=== PATIENT | male | born 1985 | race Caucasian/White ===

== ENCOUNTER 2022-05-16 09:39 | Emergency (ER) | payer BC ==
[2022-05-16] MEDS ORDERED: HYDROcodone/Acetaminophen 5/325 mg Tablet ONE (11:57)
[2022-05-16] MEDS ORDERED: Ondansetron ODT 4 MG TAB ONE (13:16)
== END 2022-05-16 13:31 | disposition home or self-care (01) ==
LOC: NAV ERS 09:39 → EDSEX 09:39 → NAV ERS 13:31
DX: S63.294A Dislocation of distal interphalangeal joint of right ring finger, initial encounter (principal); V00.131A Fall from skateboard, initial encounter; F17.210 Nicotine dependence, cigarettes, uncomplicated
CPT/HCPCS: 26770; Q0162